=== PATIENT | male | born 1990 | race African-American/Black ===

== ENCOUNTER 2022-03-29 15:04 | Outpatient (CLI) | payer OTHER | END 2022-03-29 15:05 | disposition home or self-care (01) | LOC: BICRAD 15:04 | PROVIDERS: ATTEND Internal Medicine | DX: Z02.71 Encounter for disability determination (principal); M19.29 Secondary osteoarthritis, other specified site; M25.852 Other specified joint disorders, left hip | CPT/HCPCS: 72170 ==